=== PATIENT | female | born 1980 | race Caucasian/White ===

== ENCOUNTER 2017-04-24 19:41 | Emergency (ER) | payer MEDICAID ==
[~2017-04-24] VITALS: Ht 162.6 cm; Wt 86.2 kg
[2017-04-24 19:41] VITALS: BP_SYST 145
== END 2017-04-24 21:30 | disposition left against medical advice (07) ==
LOC: SED 19:41
DX: R22.0 Localized swelling, mass and lump, head (principal); Z53.21 Procedure and treatment not carried out due to patient leaving prior to being seen by health care provider

== ENCOUNTER 2019-06-04 23:01 | Emergency (ER) | payer MEDICAID ==
[~2019-06-04] VITALS: Ht 162.6 cm; Wt 77.1 kg
--- NOTE | 2019-06-04 23:01 | NUR ---
Note nani in EDM - 06/04/19 at 2313 by UNIQUE Pt placed to ER bed 03. Pt c/o epigastric pain that radiates to her back "all day." Pt with hx of H. Pylori and GERD. Antolin N/V/D. VSS.
[2019-06-04 23:10] VITALS: BP_SYST 127
--- NOTE | 2019-06-04 23:10 | NUR ---
Pt placed to ER bed 03. Pt c/o epigastric pain that radiates to her back "all day." Pt with hx of H. Pylori and GERD. Denies N/V/D. VSS.
[2019-06-04] MEDS ORDERED: LISI2.5T48 PO (23:14)
[2019-06-04] MEDS ORDERED: HYDR50TA3 PO (23:15)
--- NOTE | 2019-06-04 23:20 | NUR ---
Dr. Larsen at bedside.
[2019-06-04] MEDS ORDERED: PANTOPRAZOLE SODIUM 40 MG TAB PO ONE (23:30)
[2019-06-04] MEDS ORDERED: DICYCLOMINE HCL 10 MG/5 ML SOLUTION PO ONE (23:30)
[2019-06-04] MEDS ORDERED: MAG-AL HYDROX/SIMETH 30 ML UDC PO ONE (23:30)
[2019-06-04] MEDS ORDERED: LIDOCAINE VISCOUS 2%, 15 ML UDC MM ONE (23:30)
[2019-06-04] MEDS ORDERED: NACL 0.9% 1,000 ML IV ONE (23:44)
[2019-06-04] MEDS ORDERED: KETOROLAC TROMETHAMINE 30 MG VIAL IVP ONE (23:45)
--- NOTE | 2019-06-04 23:50 | NUR ---
# 20 gauge angiocath placed to LAC. Use of asceptic technique. Opsite placed over site. Blood return noted. Blood for lab drawn from site. Flushed with 10 cc of normal saline. No evidence of infiltration noted. Patient tolerated well.
--- NOTE | 2019-06-05 00:18 | NUR ---
Pt to CT via stretcher in stable condition.
[2019-06-05 00:19] LABS: BASOPHILS # (AUTO) 0.1 K/uL (0.0-0.2); BASOPHILS % (AUTO) 0.5 % (0.0-2.0); EOSINOPHILS # (AUTO) 0.2 K/uL (0.0-0.4); EOSINOPHILS % (AUTO) 1.6 % (0.0-4.0); HEMATOCRIT 40.4 % (36-48); HEMOGLOBIN 13.9 g/dL (12.0-16.0); LYMPHOCYTES % (AUTO) 38.6 % (20.5-51.5); MEAN CORPUSCULAR HEMOGLOBIN 30 pg (27-31); MEAN CORPUSCULAR HGB CONC 35 % (32-36); MEAN CORPUSCULAR VOLUME 86 fL (79.0-98.0); MONOCYTES # (AUTO) 0.6 K/uL (0.0-1.0); NEUTROPHILS # (AUTO) 5.6 K/uL (1.8-7.7); NEUTROPHILS % (AUTO) 53.3 % (40.0-70.0); PLATELET COUNT (AUTO) 417 K/uL (130-430); RED BLOOD CELL COUNT(AUTO) 4.67 MIL/uL (4.2-6.2); RED CELL DISTRIBUTION WIDTH 13.4 % (9.0-15.0); WHITE BLOOD COUNT (AUTO) 10.5 K/uL (4.8-10.8)
--- NOTE | 2019-06-05 00:28 | NUR ---
Pt returns from CT. No needs verbalized at this time.
[2019-06-05 00:31] LABS: CALCIUM 8.9 mg/dL (8.4-11.0); CREATININE 0.75 mg/dL (0.55-1.30); POTASSIUM 3.4 mmol/L (3.5-5.1)
[2019-06-05 00:37] LABS: ALBUMIN 3.7 g/dL (3.4-4.8); TOTAL BILIRUBIN 0.1 mg/dL (0.0-1.0)
[2019-06-05 01:34] VITALS: BP_SYST 128
--- NOTE | 2019-06-05 01:34 | NUR ---
Patient given written and verbal discharge instructions and verbalizes understanding. ER MD discussed with patient the results and treatment provided. Patient in stable condition. ID arm band removed. IV catheter removed intact and dressing applied, no active bleeding. Rx of Prilosec and Tramadol given. Patient educated on pain management and to follow up with PMD. Pain Scale 1/10. Opportunity for questions provided and answered. Medication side effect fact sheet provided.
== END 2019-06-05 01:34 | disposition home or self-care (01) ==
LOC: SED 23:01
DX: K29.70 Gastritis, unspecified, without bleeding (principal); I10 Essential (primary) hypertension; Z90.49 Acquired absence of other specified parts of digestive tract
CPT/HCPCS: 36415; 74176; 80053; 83690; 85025; 96361; 96374; 99284; J1885; J2001; J7030

== ENCOUNTER 2019-10-21 10:37 | Emergency (ER) | payer MEDICAID ==
[~2019-10-21] VITALS: Ht 162.6 cm; Wt 77.1 kg
[~2019-10-21 10:37] MED LIST: HYDR50TA3 PO; LISI2.5T48 PO
[2019-10-21 10:43] VITALS: BP_SYST 148
[2019-10-21 10:55] VITALS: BP_SYST 148
== END 2019-10-21 10:55 | disposition home or self-care (01) ==
LOC: SED 10:37
DX: J32.4 Chronic pansinusitis (principal); I10 Essential (primary) hypertension; Z90.49 Acquired absence of other specified parts of digestive tract; Z79.899 Other long term (current) drug therapy
CPT/HCPCS: 99283

== ENCOUNTER 2019-11-22 02:15 | Emergency (ER) | payer MEDICAID ==
[~2019-11-22] VITALS: Ht 162.6 cm; Wt 77.1 kg
[2019-11-22 02:30] VITALS: BP_SYST 107
[2019-11-22] MEDS: MAG HYDROX/AL HYDROX/SIMETH 30 ML, DICYCLOMINE HCL 20 MG, LIDOCAINE VISCOUS 2% 15ML (PO... PO ONE ×3 (03:02)
[2019-11-22 03:50] VITALS: BP_SYST 113
== END 2019-11-22 03:50 | disposition home or self-care (01) ==
LOC: SED 02:15
DX: R10.13 Epigastric pain (principal); R11.2 Nausea with vomiting, unspecified; I10 Essential (primary) hypertension; F17.200 Nicotine dependence, unspecified, uncomplicated; Z90.49 Acquired absence of other specified parts of digestive tract
CPT/HCPCS: 99283; J2001

== ENCOUNTER 2020-06-07 16:49 | Emergency (ER) | payer MEDICAID ==
[~2020-06-07] VITALS: Ht 162.6 cm; Wt 77.1 kg
[2020-06-07 16:55] VITALS: BP_SYST 137
--- NOTE | 2020-06-07 16:58 | NUR ---
Patient to ER bed 07 to gown for evaluation. Side rails up.
--- NOTE | 2020-06-07 17:00 | NUR ---
PT AAO AND AMBULATORY C/O RIGHT FACIAL SWELLING FOR PAST FOR DAYS. PT REPORTS HISTORY OF THIS IN THE PAST.
--- NOTE | 2020-06-07 17:01 | NUR ---
ER Dr. NAVARRO at bedside examining patient.
[2020-06-07 17:11] VITALS: BP_SYST 137
--- NOTE | 2020-06-07 17:11 | NUR ---
Patient given written and verbal discharge instructions and verbalizes understanding. DR. MELANIE GRAHAM MD discussed with patient the results and treatment provided. Patient in stable condition. ID arm band removed. Rx ofAUGMENTIN given. Patient educated on pain management and to follow up with PMD. Pain Scale 2/10. Opportunity for questions provided and answered. Medication side effect fact sheet provided.
== END 2020-06-07 17:11 | disposition home or self-care (01) ==
LOC: SED 16:49
DX: K11.20 Sialoadenitis, unspecified (principal); I10 Essential (primary) hypertension; F17.200 Nicotine dependence, unspecified, uncomplicated; Z90.49 Acquired absence of other specified parts of digestive tract
CPT/HCPCS: 99283

== ENCOUNTER 2020-12-12 17:21 | Emergency (ER) | payer MEDICAID ==
[~2020-12-12] VITALS: Ht 162.6 cm; Wt 68.0 kg
[2020-12-12 17:21] VITALS: BP_SYST 111
[2020-12-12] MEDS ORDERED: KETOROLAC TROMETHAMINE 30 MG VIAL IVP ONE (17:45)
[2020-12-12] MEDS ORDERED: NACL 0.9% 1,000 ML IV ONE (17:45)
[2020-12-12 18:09] LABS: BASOPHILS # (AUTO) 0.1 K/uL (0.0-0.2); BASOPHILS % (AUTO) 0.4 % (0.0-2.0); EOSINOPHILS # (AUTO) 0.2 K/uL (0.0-0.4); EOSINOPHILS % (AUTO) 0.9 % (0.0-4.0); HEMATOCRIT 35.6 % (36-48); HEMOGLOBIN 11.9 g/dL (12.0-16.0); LYMPHOCYTES # (AUTO) 4.1 K/uL (1.0-5.5); LYMPHOCYTES % (AUTO) 21.4 % (20.5-51.5); MEAN CORPUSCULAR HEMOGLOBIN 28 pg (27-31); MEAN CORPUSCULAR HGB CONC 33 % (32-36); MEAN CORPUSCULAR VOLUME 83 fL (79.0-98.0); MONOCYTES # (AUTO) 0.8 K/uL (0.0-1.0); MONOCYTES % (AUTO) 4.4 % (1.7-9.3); NEUTROPHILS # (AUTO) 13.9 K/uL (1.8-7.7); NEUTROPHILS % (AUTO) 72.9 % (40.0-70.0); PLATELET COUNT (AUTO) 501 K/uL (130-430); RED BLOOD CELL COUNT(AUTO) 4.28 MIL/uL (4.2-6.2)
[2020-12-12] MEDS ORDERED: ONDANSETRON HCL 4 MG/2 ML VIAL ONE (18:09)
[2020-12-12] MEDS ORDERED: ONDANSETRON HCL 4 MG/2 ML VIAL IVP ONE (18:15)
[2020-12-12 18:23] LABS: CALCIUM 9.2 mg/dL (8.4-11.0); CREATININE 0.81 mg/dL (0.55-1.30)
[2020-12-12 18:29] LABS: ALBUMIN 3.9 g/dL (3.4-4.8); TOTAL BILIRUBIN 0.2 mg/dL (0.0-1.0)
[2020-12-12] MEDS ORDERED: POTASSIUM CHLORIDE 10 MEQ TAB.PRT.SR PO ONE (18:30)
[2020-12-12] MEDS ORDERED: ONDA4TAB5 PO (19:20)
[2020-12-12] MEDS ORDERED: IBUP-1969 PO (19:20)
[2020-12-12 19:30] VITALS: BP_SYST 115
== END 2020-12-12 19:18 | disposition home or self-care (01) ==
LOC: SED 17:21
DX: K52.89 Other specified noninfective gastroenteritis and colitis (principal); I10 Essential (primary) hypertension; F17.200 Nicotine dependence, unspecified, uncomplicated; Z79.899 Other long term (current) drug therapy; Z71.6 Tobacco abuse counseling
CPT/HCPCS: 36415; 80053; 84484; 85025; 87040; 93005; 96374; 96375; 99284; J1885; J2405; J7030

== ENCOUNTER 2021-04-05 23:17 | Emergency (ER) | payer OTHER, MEDICAID ==
[~2021-04-05] VITALS: Ht 162.6 cm; Wt 65.8 kg
[~2021-04-05 23:17] MED LIST changes: -HYDR50TA3 PO; +HYDR50TA4 PO; +IBUP-1969 PO; +ONDA4TAB5 PO
[2021-04-05 23:20] VITALS: BP_SYST 142
== END 2021-04-06 01:09 | disposition left against medical advice (07) ==
LOC: SED 23:17
DX: M54.2 Cervicalgia (principal); I10 Essential (primary) hypertension; Z79.899 Other long term (current) drug therapy; V43.52XA Car driver injured in collision with other type car in traffic accident, initial encounter; Y93.89 Activity, other specified; Y92.411 Interstate highway as the place of occurrence of the external cause; Y99.8 Other external cause status
CPT/HCPCS: 99281

== ENCOUNTER 2021-04-19 14:38 | Emergency (ER) | payer MEDICAID, OTHER ==
[~2021-04-19] VITALS: Ht 162.6 cm; Wt 65.8 kg
--- NOTE | 2021-04-19 14:45 | NUR ---
Placed in room 7 . Placed on vice president client services, blood pressure machine and pulse oximeter. To gown for exam. Side rails up. Report given to CK Dietrich.
[2021-04-19 14:50] VITALS: BP_SYST 132
--- NOTE | 2021-04-19 14:53 | NUR ---
DR TOLEDO IN TO ASSESS
--- NOTE | 2021-04-19 14:55 | NUR ---
Pt came into ER with complaint of N/V/D Xtoday started this morning and abdominal pain 07/20. Pt AAOX4. Pt reports vomit is a green color. Pt resting in [facility] VS.
--- NOTE | 2021-04-19 15:00 | NUR ---
Blood and urine collected and sent to lab.
[2021-04-19] MEDS ORDERED: NACL 0.9% 1,000 ML IV ONE (15:15)
[2021-04-19] MEDS ORDERED: ONDANSETRON HCL 4 MG/2 ML VIAL IVP ONE (15:15)
[2021-04-19 15:26] LABS: BILIRUBIN,URINE NEGATIVE (NEGATIVE); CLARITY/URINE CLEAR (CLEAR); COLOR,URINE YELLOW (YELLOW); GLUCOSE,URINE NEGATIVE (NEGATIVE); KETONES,URINE 1+ (NEGATIVE); LEUKOCYTE ESTERASE ,URINE NEGATIVE (NEGATIVE); NITRITE, URINE NEGATIVE (NEGATIVE); PH,URINE 5.5 (5.0-8.0); PROTEIN URINE TRACE (NEGATIVE); UROBILINOGEN,URINE 0.2 (0.2-1.0)
[2021-04-19 15:29] LABS: BLOOD, URINE TRACE (NEGATIVE)
[2021-04-19] MEDS ORDERED: MORPHINE 4 MG INJ. 4 MG/ML VIAL IVP ONE (15:30)
[2021-04-19 15:33] LABS: BACTERIA,URINE FEW /HPF (None Seen); RBC,URINE 0-3 /HPF (0-3); WBC,URINE 0-3 /HPF (0-3)
[2021-04-19 15:33] LABS: HEMATOCRIT 38.6 % (36-48); HEMOGLOBIN 12.2 g/dL (12.0-16.0); MEAN CORPUSCULAR HEMOGLOBIN 25 pg (27-31); MEAN CORPUSCULAR HGB CONC 32 % (32-36)
[2021-04-19 15:34] LABS: MUCUS,URINE None Seen /LPF (None Seen)
[2021-04-19 15:38] LABS: BASOPHILS % (AUTO) 0.2 % (0.0-2.0); EOSINOPHILS % (AUTO) 0.1 % (0.0-4.0); LYMPHOCYTES # (AUTO) 1.8 K/uL (1.0-5.5); LYMPHOCYTES % (AUTO) 9.6 % (20.5-51.5); MEAN CORPUSCULAR VOLUME 80 fL (79.0-98.0); MONOCYTES # (AUTO) 0.7 K/uL (0.0-1.0); MONOCYTES % (AUTO) 3.8 % (1.7-9.3); NEUTROPHILS # (AUTO) 15.8 K/uL (1.8-7.7); NEUTROPHILS % (AUTO) 86.3 % (40.0-70.0); PLATELET COUNT (AUTO) 509 K/uL (130-430); RED BLOOD CELL COUNT(AUTO) 4.83 MIL/uL (4.2-6.2); RED CELL DISTRIBUTION WIDTH 15.3 % (9.0-15.0); WHITE BLOOD COUNT (AUTO) 18.4 K/uL (4.8-10.8)
[2021-04-19 15:41] LABS: CALCIUM 9.2 mg/dL (8.4-11.0); CREATININE 0.73 mg/dL (0.55-1.30); POTASSIUM 3.5 mmol/L (3.5-5.1)
[2021-04-19] MEDS ORDERED: METOCLOPRAMIDE HCL 10 MG/2 ML VIAL IVP ONE (15:45)
[2021-04-19] MEDS ORDERED: DIPHENHYDRAMINE INJ 50 MG/ML VIAL IVP ONE (15:45)
--- NOTE | 2021-04-19 15:49 | NUR ---
Ultrasound at bedside.
[2021-04-19] MEDS ORDERED: NALOXONE HCL 2 MG/2 ML SYR ONE (15:51)
[2021-04-19 15:53] LABS: ALBUMIN 4.4 g/dL (3.4-4.8); TOTAL BILIRUBIN 0.3 mg/dL (0.0-1.0)
--- NOTE | 2021-04-19 17:00 | NUR ---
Pt resting in [place] attached to monitor VSS. No distress noted.
--- NOTE | 2021-04-19 18:11 | NUR ---
Pt resting in gurney VSS attached to monitor. No distress noted.
--- NOTE | 2021-04-19 18:12 | NUR ---
ER at bedside examining patient.
[2021-04-19 18:25] VITALS: BP_SYST 112
--- NOTE | 2021-04-19 18:26 | NUR ---
Patient given written and verbal discharge instructions and verbalizes understanding. ER MD discussed with patient the results and treatment provided. Patient in stable condition. ID arm band removed. IV catheter removed intact and dressing applied, no active bleeding. Rx of zofran given. Patient educated on pain management and to follow up with PMD. Pain Scale 0/10. Opportunity for questions provided and answered. Medication side effect fact sheet provided.
== END 2021-04-19 18:25 | disposition home or self-care (01) ==
LOC: SED 14:38
DX: R10.30 Lower abdominal pain, unspecified (principal); R11.10 Vomiting, unspecified; R19.7 Diarrhea, unspecified; I10 Essential (primary) hypertension; Z79.899 Other long term (current) drug therapy
CPT/HCPCS: 36415; 76856; 80053; 81000; 81025; 83605; 83690; 84702; 85025; 96361; 96374; 96375; 99284; J1200; J2270; J2405; J2765; J7030; J2310

== ENCOUNTER 2021-04-20 20:38 | Inpatient (IN) | payer MEDICAID, SELFPAY ==
[~2021-04-20] VITALS: Ht 162.6 cm; Wt 65.8 kg
[2021-04-20 20:49] VITALS: BP_SYST 127
[2021-04-20] MEDS ORDERED: KETOROLAC TROMETHAMINE 30 MG VIAL IVP ONE (21:45)
[2021-04-20] MEDS ORDERED: NACL 0.9% 1,000 ML IV ONE ×2 (21:45→22:45)
[2021-04-20] MEDS ORDERED: MORPHINE 2 MG/ML INJ. SYRINGE IVP ONE (21:45)
[2021-04-20 22:01] LABS: BASOPHILS % (AUTO) 0.2 % (0.0-2.0); EOSINOPHILS % (AUTO) 0.2 % (0.0-4.0); HEMATOCRIT 34.7 % (36-48); LYMPHOCYTES # (AUTO) 1.8 K/uL (1.0-5.5); LYMPHOCYTES % (AUTO) 9.2 % (20.5-51.5); MEAN CORPUSCULAR HEMOGLOBIN 25 pg (27-31); MEAN CORPUSCULAR HGB CONC 32 % (32-36); MEAN CORPUSCULAR VOLUME 80 fL (79.0-98.0); MONOCYTES # (AUTO) 1.3 K/uL (0.0-1.0); MONOCYTES % (AUTO) 6.3 % (1.7-9.3); NEUTROPHILS # (AUTO) 16.8 K/uL (1.8-7.7); NEUTROPHILS % (AUTO) 84.1 % (40.0-70.0); PLATELET COUNT (AUTO) 412 K/uL (130-430); RED BLOOD CELL COUNT(AUTO) 4.35 MIL/uL (4.2-6.2); RED CELL DISTRIBUTION WIDTH 15.2 % (9.0-15.0); WHITE BLOOD COUNT (AUTO) 19.9 K/uL (4.8-10.8)
[2021-04-20 22:06] LABS: CALCIUM 8.7 mg/dL (8.4-11.0); CREATININE 0.68 mg/dL (0.55-1.30); POTASSIUM 3.1 mmol/L (3.5-5.1)
[2021-04-20 22:17] LABS: ALBUMIN 3.4 g/dL (3.4-4.8); TOTAL BILIRUBIN 0.4 mg/dL (0.0-1.0)
[2021-04-20] MEDS ORDERED: PIPERACILLIN/TAZO 3.375 GM in NS 50 ML IV ONE (22:45)
[2021-04-20] MEDS ORDERED: fentaNYL CITRATE/PF 100 MCG/2 ML AMP IVP ONE (23:15)
[2021-04-20] MEDS ORDERED: PIPERACILLIN/TAZOBACTAM 3.375 GM/VIAL (ZOSYN) IV ONE (23:59)
[2021-04-21] VITALS (7 sets, daily range): BP systolic 94–154
[2021-04-21] MEDS ORDERED: MORPHINE 4 MG INJ. 4 MG/ML VIAL IVP ONE ×2 (00:30→02:00)
[2021-04-21 01:02] LABS: PROTHROMBIN TIME 10.3 SECS (9.5-12.5)
[2021-04-21] MEDS ORDERED: ACETAMINOPHEN 650 MG SUPP.RECT RC ONE ×2 (01:59→02:00)
[2021-04-21] MEDS ORDERED: ACETAMINOPHEN 325 MG SUPP.RECT RC ONE ×2 (02:00)
[2021-04-21] MEDS ORDERED: MORPHINE 4 MG INJ. 4 MG/ML VIAL ONE (02:01)
[2021-04-21] MEDS ORDERED: MAGNESIUM SULFATE 50 ML IV ONE (02:15)
[2021-04-21] MEDS ORDERED: KCL 20 mEq in 100 mL (PREMIX) 100 ML IV ONE (02:15)
[2021-04-21] MEDS ORDERED: ACETAMINOPHEN 650 MG SUPP.RECT RC PRN (03:00)
[2021-04-21] MEDS ORDERED: ONDANSETRON HCL 4 MG/2 ML VIAL IVP PRN (03:00)
[2021-04-21] MEDS: HYDROmorphone 1 MG/ML INJ. CARTRIDGE IVP PRN ×4 (03:37→22:04)
[2021-04-21] MEDS ORDERED: PIPERACILLIN/TAZOBACTAM 3.375 GM/VIAL (ZOSYN) IV ONE ×2 (05:52→07:43)
[2021-04-21] MEDS ORDERED: PIPERACILLIN/TAZO 3.375/DEX-IS 50 ML IV SCH (06:00)
[2021-04-21] MEDS ORDERED: SEVOFLURANE 15 MIN GAS INH ONE (07:43)
[2021-04-21] MEDS ORDERED: ONDANSETRON HCL 4 MG/2 ML VIAL IVP ONE (07:43)
[2021-04-21] MEDS ORDERED: LR 1,000 ML IV.SOLN IV ONE (07:43)
[2021-04-21] MEDS ORDERED: MIDAZOLAM HCL 5 MG/5 ML VIAL IVP ONE (07:43)
[2021-04-21] MEDS ORDERED: KETOROLAC TROMETHAMINE 30 MG VIAL IVP ONE (07:43)
[2021-04-21] MEDS ORDERED: PHENYLEPHRINE HCL 10 MG/ML VIAL (NEOSYNEPHRINE) IV ONE (07:43)
[2021-04-21] MEDS ORDERED: SUCCINYLCHOLINE CHLORIDE 20 MG/ML(QUELICIN) IVP ONE (07:43)
[2021-04-21] MEDS ORDERED: PROPOFOL 200MG/ 20ML VIAL (DIPRIVAN) IV ONE (07:43)
[2021-04-21] MEDS ORDERED: fentaNYL CITRATE/PF 100 MCG/2 ML AMP IVP ONE (07:43)
[2021-04-21] MEDS ORDERED: NS 1000 ML IV.SOLN IV ONE (07:43)
[2021-04-21] MEDS ORDERED: SUGAMMADEX SODIUM 200 MG/2 ML VIAL IV ONE (07:43)
[2021-04-21] MEDS ORDERED: DEXAMETHASONE SOD PHOSPHATE 4 MG/ML VIAL IVP ONE (07:43)
[2021-04-21] MEDS ORDERED: GLYCOPYRROLATE 0.2 MG/ML VIAL IJ ONE (07:43)
[2021-04-21] MEDS ORDERED: METOCLOPRAMIDE HCL 10 MG/2 ML VIAL IVP ONE (07:43)
[2021-04-21] MEDS ORDERED: NS IRRIG SOLN 1000 ML IR ONE (07:43)
[2021-04-21] MEDS ORDERED: LR 1,000 ML IV SCH (08:30)
[2021-04-21] MEDS ORDERED: HYDROmorphone 1 MG/ML INJ. CARTRIDGE IVP PRN (08:30)
[2021-04-21] MEDS ORDERED: HYDROmorphone 2 MG/ML VIAL IVP PRN (08:30)
[2021-04-21] MEDS ORDERED: MEPERIDINE HCL/PF 25 MG/ML DISP.SYRIN IVP PRN (08:30)
[2021-04-21] MEDS: PIPERACILLIN/TAZO 3.375/DEX-IS 50 ML IV SCH ×3 (13:24→23:47)
[2021-04-21] MEDS: ENOXAPARIN SODIUM 40 MG/0.4 ML SYRINGE SUBCUT SCH (20:36)
[2021-04-21] MEDS ORDERED: TEMAZEPAM 7.5 MG CAPSULE PO ONE (23:30)
[2021-04-22 01:12] VITALS: BP_SYST 123
[2021-04-22] MEDS: HYDROmorphone 1 MG/ML INJ. CARTRIDGE IVP PRN ×3 (04:36→20:38)
[2021-04-22] MEDS: PIPERACILLIN/TAZO 3.375/DEX-IS 50 ML IV SCH ×3 (05:49→17:12)
[2021-04-22 06:27] LABS: EOSINOPHILS % (AUTO) 0.1 % (0.0-4.0); HEMOGLOBIN 9.6 g/dL (12.0-16.0); LYMPHOCYTES # (AUTO) 1.2 K/uL (1.0-5.5); LYMPHOCYTES % (AUTO) 7.1 % (20.5-51.5); MEAN CORPUSCULAR HEMOGLOBIN 26 pg (27-31); MEAN CORPUSCULAR HGB CONC 32 % (32-36); MEAN CORPUSCULAR VOLUME 80 fL (79.0-98.0); MONOCYTES # (AUTO) 0.7 K/uL (0.0-1.0); MONOCYTES % (AUTO) 4.2 % (1.7-9.3); NEUTROPHILS # (AUTO) 15.4 K/uL (1.8-7.7); NEUTROPHILS % (AUTO) 88.6 % (40.0-70.0); PLATELET COUNT (AUTO) 344 K/uL (130-430); RED BLOOD CELL COUNT(AUTO) 3.74 MIL/uL (4.2-6.2); RED CELL DISTRIBUTION WIDTH 15.4 % (9.0-15.0); WHITE BLOOD COUNT (AUTO) 17.4 K/uL (4.8-10.8)
[2021-04-22 06:44] LABS: CALCIUM 8.6 mg/dL (8.4-11.0); CREATININE 0.58 mg/dL (0.55-1.30); POTASSIUM 3.4 mmol/L (3.5-5.1)
[2021-04-22 08:00] VITALS: BP_SYST 136
[2021-04-22 12:46] VITALS: BP_SYST 110
[2021-04-22] MEDS ORDERED: ACETAMINOPHEN 325 MG TABLET PO PRN (13:45)
[2021-04-22] MEDS ORDERED: TEMAZEPAM 7.5 MG CAPSULE PO PRN (13:45)
[2021-04-22 16:45] VITALS: BP_SYST 117
[2021-04-22 20:00] VITALS: BP_SYST 118
[2021-04-22] MEDS: ENOXAPARIN SODIUM 40 MG/0.4 ML SYRINGE SUBCUT SCH (20:37)
[2021-04-23] MEDS: PIPERACILLIN/TAZO 3.375/DEX-IS 50 ML IV SCH ×4 (00:08→17:58)
[2021-04-23 00:18] VITALS: BP_SYST 121
[2021-04-23] MEDS: HYDROmorphone 1 MG/ML INJ. CARTRIDGE IVP PRN ×4 (00:18→15:25)
[2021-04-23 07:15] LABS: BASOPHILS % (AUTO) 0.2 % (0.0-2.0); EOSINOPHILS # (AUTO) 0.1 K/uL (0.0-0.4); HEMATOCRIT 25.5 % (36-48); HEMOGLOBIN 8.4 g/dL (12.0-16.0); LYMPHOCYTES # (AUTO) 1.5 K/uL (1.0-5.5); LYMPHOCYTES % (AUTO) 12.4 % (20.5-51.5); MEAN CORPUSCULAR HEMOGLOBIN 26 pg (27-31); MEAN CORPUSCULAR HGB CONC 33 % (32-36); MEAN CORPUSCULAR VOLUME 79 fL (79.0-98.0); MONOCYTES # (AUTO) 0.5 K/uL (0.0-1.0); MONOCYTES % (AUTO) 4.2 % (1.7-9.3); NEUTROPHILS # (AUTO) 9.6 K/uL (1.8-7.7); NEUTROPHILS % (AUTO) 82.2 % (40.0-70.0); PLATELET COUNT (AUTO) 316 K/uL (130-430); RED BLOOD CELL COUNT(AUTO) 3.22 MIL/uL (4.2-6.2); RED CELL DISTRIBUTION WIDTH 15.1 % (9.0-15.0)
[2021-04-23 07:25] LABS: CREATININE 0.6 mg/dL (0.55-1.30)
[2021-04-23 07:45] VITALS: BP_SYST 120; BP_SYST 121
[2021-04-23 09:00] LABS: POTASSIUM 2.9 mmol/L (3.5-5.1)
[2021-04-23 09:55] LABS: WHITE BLOOD COUNT (AUTO) 11.7 K/uL (4.8-10.8)
[2021-04-23] MEDS: POTASSIUM CHLORIDE 20 MEQ TAB.PRT.SR PO SCH ×2 (11:26→15:12)
[2021-04-23 12:00] VITALS: BP_SYST 121
[2021-04-23 16:00] VITALS: BP_SYST 122
[2021-04-23 17:03] LABS: CREATININE 0.55 mg/dL (0.55-1.30); POTASSIUM 3.7 mmol/L (3.5-5.1)
[2021-04-23 20:00] VITALS: BP_SYST 112
[2021-04-23] MEDS ORDERED: HYDR-3917 PO (20:06)
[2021-04-23] MEDS ORDERED: AMOX-426 PO (20:09)
[2021-04-23 20:30] VITALS: BP_SYST 116
== END 2021-04-23 21:35 | disposition home or self-care (01) | DRG 233 ==
LOC: SED 20:38 → SMU 04-21 02:46
PROVIDERS: ADMIT Family Medicine; ATTEND Family Medicine
PROC: 0W9G3ZZ Drainage of Peritoneal Cavity, Percutaneous Approach (ICD-10-PCS; 2021-04-21)
PROC: 0DTJ4ZZ Resection of Appendix, Percutaneous Endoscopic Approach (ICD-10-PCS; principal; 2021-04-21 07:43)
DX: K35.32 Acute appendicitis with perforation, localized peritonitis, and gangrene, without abscess (principal); R65.10 Systemic inflammatory response syndrome (SIRS) of non-infectious origin without acute organ dysfunction; D72.829 Elevated white blood cell count, unspecified; I10 Essential (primary) hypertension; Z20.822 Contact with and (suspected) exposure to COVID-19; F17.200 Nicotine dependence, unspecified, uncomplicated; Z79.1 Long term (current) use of non-steroidal anti-inflammatories (NSAID); Z79.899 Other long term (current) drug therapy
CPT/HCPCS: 36415; 76376; 76856-TC; 80048; 80053; 83605; 83690; 84702; 85025; 85610-TC; 85730-TC; 87040-TC; 87081; 88304; 94010; 94760; 96361; 96365; 96368; 96375; 96376; 99285; C1727; C9399; J0330; J1100; J1170; J1650; J1885; J2250; J2270; J2370; J2405; J2543; J2704; J2765; J3010; J3475; J3480; J3490; J7030; J7120; Q9967

== ENCOUNTER 2022-04-28 13:38 | Emergency (ER) | payer MEDICAID ==
[~2022-04-28 13:38] MED LIST changes: +AMOX-426 PO; +HYDR-3917 PO; +MECL-160 PO
--- NOTE | 2022-04-28 13:54 | NUR ---
NO ANSWER IN WAITING LOBBY OR OUTSIDE.
--- NOTE | 2022-04-28 14:09 | NUR ---
NO ANSWER IN WAITING LOBBY OR OUTSIDE.
[2022-04-28] MEDS ORDERED: IBUP-1969 PO (19:21)
[2022-04-28] MEDS ORDERED: ACET325T53 PO (19:21)
[2022-04-29] MEDS ORDERED: HYDR-3917 PO (08:09)
[2022-04-29] MEDS ORDERED: IBUP-1969 PO (08:09)
== END 2022-04-28 15:10 | disposition left against medical advice (07) ==
LOC: SED 13:38
DX: M25.569 Pain in unspecified knee (principal); Z53.21 Procedure and treatment not carried out due to patient leaving prior to being seen by health care provider

== ENCOUNTER 2022-04-28 16:33 | Emergency (ER) | payer MEDICAID ==
[~2022-04-28] VITALS: Ht 162.6 cm; Wt 63.5 kg
--- NOTE | 2022-04-28 16:44 | NUR ---
ER IN TRIAGE examining patient.
[2022-04-28] MEDS ORDERED: ONDANSETRON 4 MG ODT TAB PO ONE (16:45)
[2022-04-28] MEDS ORDERED: ACETAMINOPHEN 500 MG TABLET PO ONE (16:45)
--- NOTE | 2022-04-28 17:20 | NUR ---
Note nani in [facility] - 04/28/22 at 1721 by [email or web address] CALLED AT [facility] TIME. NOT IN WAITING AREA OR OUTSIDE.
--- NOTE | 2022-04-28 17:21 | NUR ---
PT TAKEN TO XRAY AT THIS TIME
[2022-04-28 17:32] VITALS: BP_SYST 147
--- NOTE | 2022-04-28 17:34 | NUR ---
PATIENT BROUGHT IN COMPLAINING OF RIGHT KNEE PAIN STARTING TODAY AFTER [place]EL [place]. SHE REPORTS THE QUAD WAS A TWO SEATER, THE SECOND SEAT HELD HER 200 POUND SON AND HE FELL LANDED DIRECTLY ON RIGHT KNEE AND HEARD A LOUD POP. PAIN 4/10 .
[2022-04-28 19:20] VITALS: BP_SYST 126
--- NOTE | 2022-04-28 19:20 | NUR ---
Patient given written and verbal discharge instructions and verbalizes understanding. ER MD discussed with patient the results and treatment provided. Patient in stable condition. ID arm band removed. Rx of tylENOL AND IBUPROFEN given. Patient educated on pain management and to follow up with PMD. Pain Scale 0/10 Opportunity for questions provided and answered. Medication side effect fact sheet provided.
[2022-04-28] MEDS ORDERED: ACET325T53 PO (19:21)
[2022-04-28] MEDS ORDERED: IBUP-1969 PO (19:21)
--- NOTE | 2022-04-28 19:29 | NUR ---
called in lobby,tent, front area. no response.
[2022-04-29] MEDS ORDERED: HYDR-3917 PO (08:09)
[2022-04-29] MEDS ORDERED: IBUP-1969 PO (08:09)
--- NOTE | 2022-05-01 16:44 | NUR ---
Chelsea cardoza in ED - 05/02/22 at 2144 by [email or web address] SANTOS Natarajan IN TRIAGE examining patient.
== END 2022-04-28 19:20 | disposition home or self-care (01) ==
LOC: SED 16:33
DX: S83.91XA Sprain of unspecified site of right knee, initial encounter (principal); I10 Essential (primary) hypertension; Z79.899 Other long term (current) drug therapy; V00.831A Fall from motorized mobility scooter, initial encounter; Y93.89 Activity, other specified; Y92.89 Other specified places as the place of occurrence of the external cause; Y99.8 Other external cause status
CPT/HCPCS: 99283; 73564; Q0162

== ENCOUNTER 2022-04-29 07:41 | Emergency (ER) | payer MEDICAID ==
[~2022-04-29] VITALS: Ht 162.6 cm; Wt 63.5 kg
[~2022-04-29 07:41] MED LIST changes: +ACET325T53 PO
[2022-04-29 07:53] VITALS: BP_SYST 127
[2022-04-29] MEDS ORDERED: HYDR-3917 PO (08:09)
[2022-04-29] MEDS ORDERED: IBUP-1969 PO (08:09)
[2022-04-29] MEDS ORDERED: KETOROLAC TROMETHAMINE 60 MG/2 ML VIAL IM ONE (08:15)
[2022-04-29 08:17] VITALS: BP_SYST 128
== END 2022-04-29 08:18 | disposition home or self-care (01) ==
LOC: SED 07:41
DX: S80.911A Unspecified superficial injury of right knee, initial encounter (principal); I10 Essential (primary) hypertension; Z79.899 Other long term (current) drug therapy; V18.0XXA Pedal cycle driver injured in noncollision transport accident in nontraffic accident, initial encounter; Y93.89 Activity, other specified; Y92.89 Other specified places as the place of occurrence of the external cause; Y99.8 Other external cause status
CPT/HCPCS: 99283; 29505; 96372; J1885

== ENCOUNTER 2022-07-01 14:40 | Emergency (ER) | payer OTHER, MEDICAID ==
[~2022-07-01] VITALS: Ht 162.6 cm; Wt 65.8 kg
[2022-07-01 14:57] VITALS: BP_SYST 126
[2022-07-01] MEDS ORDERED: ONDANSETRON 4 MG ODT TAB PO ONE (15:45)
[2022-07-01] MEDS ORDERED: MAG-AL HYDROX/SIMETH 30 ML UDC PO ONE (15:45)
[2022-07-01 16:06] LABS: BASOPHILS % (AUTO) 0.2 % (0.0-2.0); EOSINOPHILS % (AUTO) 0.2 % (0.0-4.0); HEMATOCRIT 40.5 % (36-48); LYMPHOCYTES # (AUTO) 1.6 K/uL (1.0-5.5); LYMPHOCYTES % (AUTO) 8.7 % (20.5-51.5); MEAN CORPUSCULAR VOLUME 84 fL (79.0-98.0); MONOCYTES # (AUTO) 0.7 K/uL (0.0-1.0); MONOCYTES % (AUTO) 3.8 % (1.7-9.3); NEUTROPHILS # (AUTO) 15.7 K/uL (1.8-7.7); NEUTROPHILS % (AUTO) 87.1 % (40.0-70.0); PLATELET COUNT (AUTO) 390 K/uL (130-430); RED BLOOD CELL COUNT(AUTO) 4.84 MIL/uL (4.2-6.2); RED CELL DISTRIBUTION WIDTH 15.5 % (9.0-15.0); WHITE BLOOD COUNT (AUTO) 18.1 K/uL (4.8-10.8)
[2022-07-01 16:25] LABS: ANION GAP 10 (5-15); CALCIUM 9.2 mg/dL (8.4-11.0); CHLORIDE 97 mmol/L (98-107); CREATININE 0.93 mg/dL (0.55-1.30); GLUCOSE 128 mg/dL (70-99); UREA NITROGEN, BLOOD 23 mg/dL (8-21)
[2022-07-01 16:28] LABS: GFR AFRICAN AMERICAN 84 mL/min (>90)
[2022-07-01 16:51] LABS: ALANINE AMINOTRANSFERASE 80 U/L (12-78); ALBUMIN 4.2 g/dL (3.4-4.8); ASPARTATE AMINOTRANSFERASE 104 U/L (10-37); TOTAL BILIRUBIN 0.4 mg/dL (0.0-1.0)
[2022-07-01] MEDS ORDERED: POTASSIUM CHLORIDE 20 MEQ TAB.PRT.SR PO ONE (17:15)
[2022-07-01 20:25] VITALS: BP_SYST 120
== END 2022-07-01 20:24 | disposition home or self-care (01) ==
LOC: SED 14:40
DX: R10.13 Epigastric pain (principal); R07.89 Other chest pain; N83.202 Unspecified ovarian cyst, left side; E87.6 Hypokalemia; I10 Essential (primary) hypertension; Z79.899 Other long term (current) drug therapy
CPT/HCPCS: 99285; 74177; 71045; 80053; 83690; 85025; 84484; 36415; 93005; 76376; 81025; Q0162; Q9967

== ENCOUNTER 2022-12-30 10:53 | Emergency (ER) | payer MEDICAID, OTHER ==
[~2022-12-30] VITALS: Ht 162.6 cm; Wt 65.8 kg
[2022-12-30 10:53] VITALS: BP_SYST 125
--- NOTE | 2022-12-30 10:55 | NUR ---
BROUGHT BACK TO BED #6 AND TRIAGED. REPORT GIVEN TO OSKAR
--- NOTE | 2022-12-30 11:12 | NUR ---
PT PRESENTS TO ED WITH REPORT OF THROAT AND BILATERAL EAR PAIN SINCE WEDNESDAY. PT IS AWAKE A/O X4 AND VERBALLY RESPONSIVE. PT STATES "I CANT REALLY EAT OR DRINK, IT FEELS LIKE THERES KNIVS IN MY THROAT". PT REPORTS TAKING MUCINEX AND IBUPROFEN WITH NO RESOLVE OF COMPLAINTS. PT ALSO STATES "IM SURE I MIGHTVE HAD A FEVER THROUGHOUT THE NIGHT TOO, I GET THE SWEATS BUT I DIDNT CHECK MY TEMP". PT SPEAKS CLEAR AND FULL SENTENCES. DENIES COUGH OR SOB, REPORTS FEELING LIKE PHLEGM IS BUILDING UP IN THROAT, HOWEVER DENIES CONGESTION. BREATHING EVEN AND UNLABORED, NO ACUTE DISTRESS NOTED. SAFETY MEASURES IN PLACE
--- NOTE | 2022-12-30 11:18 | NUR ---
ER at bedside examining patient.
[2022-12-30] MEDS ORDERED: PRED20TA PO (11:29)
[2022-12-30] MEDS ORDERED: IBUP-1969 PO (11:29)
[2022-12-30] MEDS ORDERED: PENICILLIN G BENZATHINE 1.2 MMU/2 ML SYR IM ONE (11:30)
[2022-12-30] MEDS ORDERED: KETOROLAC TROMETHAMINE 60 MG/2 ML VIAL IM ONE (11:30)
--- NOTE | 2022-12-30 11:56 | NUR ---
DISCHARGE INSTRUCTIONS REVIEWED WITH PT, PT VERBALIZED UNDERSTANDING AND DENIED ANY QUESTIONS. PT AMBULATED FROM ED WITH STEADY GAIT
== END 2022-12-30 11:56 | disposition home or self-care (01) ==
LOC: SED 10:53
DX: A49.1 Streptococcal infection, unspecified site (principal); R50.9 Fever, unspecified; I10 Essential (primary) hypertension; Z79.899 Other long term (current) drug therapy
CPT/HCPCS: 99284; 96372; J0561; J1885

== ENCOUNTER 2023-09-14 07:27 | Emergency (ER) | payer MEDICAID ==
[~2023-09-14] VITALS: Ht 162.6 cm; Wt 68.0 kg
[~2023-09-14 07:27] MED LIST changes: -MECL-160 PO; +MECL-292 PO; +PRED20TA PO
[2023-09-14 07:33] VITALS: BP_SYST 117; PULSE 76; RESP 16; TEMP 97.8; O2SAT 99
[2023-09-14] MEDS ORDERED: MECL-261 PO (08:52)
[2023-09-14 09:07] VITALS: BP_SYST 117; PULSE 68; RESP 16; TEMP 97.6; O2SAT 99
== END 2023-09-14 09:07 | disposition home or self-care (01) ==
LOC: SED 07:27
DX: H81.10 Benign paroxysmal vertigo, unspecified ear (principal); I10 Essential (primary) hypertension; Z79.899 Other long term (current) drug therapy
CPT/HCPCS: 70450-TC; 76376; 99284

== ENCOUNTER 2024-05-24 09:28 | Emergency (ER) | payer MEDICAID ==
[~2024-05-24] VITALS: Ht 162.6 cm; Wt 48.1 kg
[~2024-05-24 09:28] MED LIST changes: +MECL-261 PO
[2024-05-24 09:34] VITALS: BP_SYST 122; PULSE 81; RESP 20; TEMP 98.3; O2SAT 98
[2024-05-24] MEDS: NACL 0.9% 1,000 ML IV ONE (10:13)
[2024-05-24] MEDS: MECLIZINE HCL 25 MG TABLET (ANITVERT) PO ONE (10:15)
[2024-05-24 10:16] LABS: BASOPHILS % (AUTO) 0.2 % (0.0-2.0); EOSINOPHILS # (AUTO) 0.1 K/uL (0.0-0.4); EOSINOPHILS % (AUTO) 1.5 % (0.0-4.0); HEMATOCRIT 42.9 % (36-48); HEMOGLOBIN 14.7 g/dL (12.0-16.0); LYMPHOCYTES # (AUTO) 2.6 K/uL (1.0-5.5); LYMPHOCYTES % (AUTO) 37.6 % (20.5-51.5); MEAN CORPUSCULAR HEMOGLOBIN 30 pg (27-31); MEAN CORPUSCULAR HGB CONC 34 % (32-36); MEAN CORPUSCULAR VOLUME 88 fL (79.0-98.0); MONOCYTES # (AUTO) 0.6 K/uL (0.0-1.0); MONOCYTES % (AUTO) 8.2 % (1.7-9.3); NEUTROPHILS # (AUTO) 3.6 K/uL (1.8-7.7); NEUTROPHILS % (AUTO) 52.5 % (40.0-70.0); PLATELET COUNT (AUTO) 384 K/uL (130-430); RED BLOOD CELL COUNT(AUTO) 4.87 MIL/uL (4.2-6.2); RED CELL DISTRIBUTION WIDTH 12.6 % (9.0-15.0)
[2024-05-24 10:28] LABS: CALCIUM 9.5 mg/dL (8.4-11.0); CREATININE 0.73 mg/dL (0.55-1.30); POTASSIUM 3.9 mmol/L (3.5-5.1)
[2024-05-24] MEDS ORDERED: MECL-225 PO (11:42)
[2024-05-24 11:51] VITALS: BP_SYST 120; PULSE 81; RESP 18; TEMP 98.4; O2SAT 99
== END 2024-05-24 11:51 | disposition home or self-care (01) ==
LOC: SED 09:28
DX: H81.10 Benign paroxysmal vertigo, unspecified ear (principal); I10 Essential (primary) hypertension; Z79.899 Other long term (current) drug therapy; Z79.2 Long term (current) use of antibiotics
CPT/HCPCS: 99283; 96360; 80048; 85025; 36415; J7030; J8597